=== PATIENT | male | born 2005 | race Caucasian/White ===

== ENCOUNTER 2024-05-28 14:14 | Observation (INO) ==
[2024-05-28] MEDS: Lactated Ringers 1000 ml BAG 1,000 ML IV ONE (15:03)
[2024-05-28] MEDS: Ondansetron 4 mg VIAL 2 MG/ML 2 ml VIAL IV ONE (15:03)
[2024-05-28 15:38] LABS: ABS Lymphocytes 1.3 10^3/uL (1.0-4.8); ABS Monocytes 0.4 10^3/uL (0.0-1.1); ABS Neutrophils 4.2 10^3/uL (1.5-7.6); Eosinophil % 0.5 %; Hematocrit 41.4 % (38-53); Hemoglobin 13.7 g/dL (13.2-16.3); Lymphocyte % 22.5 %; Mean Corpuscular Hemoglobin 29.8 pg (27-33); Mean Corpuscular Hgb Conc 33.1 g/dL (31-36); Mean Corpuscular Volume 90.1 fL (80-97); Mean Platelet Volume 7.8 fL (7.5-11.2); Nucleated Red Blood Cells % 0.1 %/100WBC (0.0-0.8); Platelet Count 253 10^3/uL (150-450); Red Cell Distribution Width 12.5 % (12-17); White Blood Count 5.9 10^3/uL (3.6-10.2)
[2024-05-28 16:22] LABS: Urine Appearance Clear; Urine Bilirubin Negative (Negative); Urine Blood 3+ (Negative); Urine Color Yellow; Urine Glucose Negative (Negative); Urine Ketones Trace (Negative); Urine Nitrite Negative (Negative); Urine Protein Trace (Negative); Urine Specific Gravity 1.026 (1.002-1.030); Urine Urobilinogen Negative (Negative)
[2024-05-28 16:39] LABS: Urine Bacteria Absent /HPF (Absent); Urine Red Blood Cell 3+(>10/hpf) /HPF (0-Trace); Urine White Blood Cell Trace(0-5/hpf) /HPF (0-Trace)
[2024-05-28 16:48] LABS: ALT 8 U/L (7-52); Alkaline Phosphatase 79 U/L (35-149); Anion Gap 7 mmol/L (2-16); Blood Urea Nitrogen 15 mg/dL (6-24); C Reactive Protein < 1.00 mg/L (<8.01); CO2 Carbon Dioxide 24 mmol/L (22-32); Calcium 8.8 mg/dL (8.6-10.3); Chloride 105 mmol/L (101-111); Creatinine, Serum 1.06 mg/dL (0.67-1.17); Glucose 91 mg/dL (70-100); Lipase < 10 U/L (11.0-82.0); Sodium 136 mmol/L (135-145); Total Bilirubin 0.7 mg/dL (0.2-1.0); eGFR CKD-EPI 102.4 (>60)
[2024-05-28 17:37] LABS: Potassium Redraw 3.5 mmol/L (3.5-5.0)
[2024-05-28] MEDS ORDERED: Ondansetron 4 mg VIAL 2 MG/ML 2 ml VIAL IV PRN (17:55)
[2024-05-28] MEDS: Lactated Ringers 1000 ml BAG 1,000 ML IV SCH (18:16)
[2024-05-28] MEDS ORDERED: Magnesium Hydroxide LIQ 30 ML UDC PO PRN (18:20)
[2024-05-29 07:48] LABS: ABS Eosinophils 0.1 10^3/uL (0.0-0.5); ABS Lymphocytes 2.5 10^3/uL (1.0-4.8); ABS Monocytes 0.6 10^3/uL (0.0-1.1); ABS Neutrophils 3.4 10^3/uL (1.5-7.6); Eosinophil % 1.7 %; Hematocrit 37.9 % (38-53); Lymphocyte % 37.9 %; Mean Corpuscular Hemoglobin 30.8 pg (27-33); Mean Corpuscular Hgb Conc 34.3 g/dL (31-36); Mean Corpuscular Volume 89.8 fL (80-97); Platelet Count 223 10^3/uL (150-450); Red Blood Count 4.22 10^6/uL (4.06-5.63); Red Cell Distribution Width 12.3 % (12-17); White Blood Count 6.6 10^3/uL (3.6-10.2)
[2024-05-29 08:03] LABS: Calcium 9.2 mg/dL (8.6-10.3); Creatinine, Serum 1.41 mg/dL (0.67-1.17); eGFR CKD-EPI 72.7 (>60)
[2024-05-29] MEDS ORDERED: fentaNYL 100 mcg/2 ml 50 MCG/ML VIAL ONE (08:36)
[2024-05-29] MEDS ORDERED: Midazolam 2 mg/2 ml VIAL 1 mg/ml 2 ml VIAL (2 mg) ONE ×2 (08:36→11:11)
[2024-05-29] MEDS ORDERED: Propofol 10 MG/ML 20 ML BTL ONE ×4 (08:40→11:42)
[2024-05-29] MEDS ORDERED: Ondansetron 4 mg VIAL 2 MG/ML 2 ml VIAL IV PRN (10:24)
[2024-05-29] MEDS ORDERED: fentaNYL 100 mcg/2 ml 50 MCG/ML VIAL IV PRN (10:24)
[2024-05-29] MEDS ORDERED: Naloxone 0.4 mg VIAL 0.4 mg/ml 1 ml VIAL IV PRN (10:24)
[2024-05-29] MEDS ORDERED: Iohexol 180 (CONTRAST) 10 ML SDV IV ONE (10:41)
[2024-05-29] MEDS ORDERED: Lidocaine 2% JELLY 10 ML JELLY ONE (10:42)
[2024-05-29] MEDS ORDERED: Lidocaine 2% PF 5 ML VIAL ONE (11:05)
[2024-05-29] MEDS ORDERED: ceFAZolin 1 GM ADVAN 1 GM ADDV.VIAL IVPB ONE (11:19)
[2024-05-29] MEDS ORDERED: ceFAZolin VIAL VIAL ONE (11:20)
[2024-05-29 13:35] VITALS: BP 109/78
[2024-05-30] MEDS ORDERED: ceFAZolin VIAL 2 GM in NS 0.9% 100 ml BAG 100 ML IVPB SCH (07:00)
== END 2024-05-29 14:50 | disposition home or self-care (01) ==
LOC: EDHOLD 14:14 → ED 14:14 → SUATTDRO 17:44 → MED 05-29 03:17
PROVIDERS: ADMIT Student in an Organized Health Care Education/Training Program; ATTEND Internal Medicine